=== PATIENT | male | born 1965 | race Caucasian/White ===

== ENCOUNTER 2017-05-18 07:15 | Outpatient (RCR) | payer BC, SELFPAY ==
[2017-05-18 11:17] LABS: AST(SGOT) 16 U/L (15-37); Alanine Aminotransfer ALT/SGPT 32 U/L (16-61); Albumin, Serum 3.8 g/dL (3.2-5.0); Alkaline Phosphatase 98 U/L (45-117); Bilirubin, Direct 0.07 mg/dL (0.00-0.30); Free T3 3.1 pg/mL (2.18-3.98); Globulin 3.4 g/dL (2.2-4.2); Protein, Total 7.2 g/dL (6.4-8.2); T4 Free Direct 1.02 ng/dL (0.76-1.46); Thyroid Stim Hormone (TSH) 2.21 uIU/mL (0.358-3.74)
== END 2017-05-18 08:00 | disposition home or self-care (01) ==
LOC: MTLAB 07:15
PROVIDERS: Family Provider Family Medicine; PCP Family Medicine
DX: E05.90 Thyrotoxicosis, unspecified without thyrotoxic crisis or storm (principal)
CPT/HCPCS: 36415; 80076; 84439; 84443; 84481

== ENCOUNTER → 2017-10-07 07:58 | Outpatient (CLI) | payer OTHER, SELFPAY ==
[2017-10-07 10:25] LABS: AST(SGOT) 26 U/L (15-37); Alanine Aminotransfer ALT/SGPT 46 U/L (16-61); Albumin, Serum 4.1 g/dL (3.2-5.0); Alkaline Phosphatase 101 U/L (45-117); Bilirubin, Direct 0.11 mg/dL (0.00-0.30); Free T3 3.2 pg/mL (2.18-3.98); Globulin 3.6 g/dL (2.2-4.2); Protein, Total 7.7 g/dL (6.4-8.2); T4 Free Direct 1.08 ng/dL (0.76-1.46); Thyroid Stim Hormone (TSH) 1.83 uIU/mL (0.358-3.74)
== END ==
PROVIDERS: Family Provider Family Medicine; PCP Family Medicine
DX: E05.90 Thyrotoxicosis, unspecified without thyrotoxic crisis or storm (principal)
CPT/HCPCS: 36415; 80076; 84439; 84443; 84481

== ENCOUNTER 2018-03-12 10:17 | Outpatient (RCR) | payer OTHER, SELFPAY ==
[2018-03-12 13:03] LABS: AST(SGOT) 28 U/L (15-37); Alanine Aminotransfer ALT/SGPT 46 U/L (16-61); Albumin, Serum 4.2 g/dL (3.2-5.0); Alkaline Phosphatase 107 U/L (45-117); Bilirubin, Direct 0.12 mg/dL (0.00-0.30); Globulin 3.4 g/dL (2.2-4.2); Protein, Total 7.6 g/dL (6.4-8.2); T4 Free Direct 1.07 ng/dL (0.76-1.46); Thyroid Stim Hormone (TSH) 2.91 uIU/mL (0.358-3.74)
== END 2018-03-12 11:00 | disposition home or self-care (01) ==
LOC: MTLAB 10:17
PROVIDERS: Family Provider Family Medicine; PCP Family Medicine
DX: E05.90 Thyrotoxicosis, unspecified without thyrotoxic crisis or storm (principal)
CPT/HCPCS: 36415; 80076; 84439; 84443; 84481

== ENCOUNTER 2018-05-25 07:50 | Outpatient (RCR) | payer OTHER, SELFPAY ==
[2018-05-25 10:29] LABS: AST(SGOT) 20 U/L (15-37); Alanine Aminotransfer ALT/SGPT 40 U/L (16-61); Albumin, Serum 4.1 g/dL (3.2-5.0); Alkaline Phosphatase 107 U/L (45-117); Bilirubin, Direct < 0.05 mg/dL (0.00-0.30); Free T3 3.1 pg/mL (2.18-3.98); Globulin 3.3 g/dL (2.2-4.2); Protein, Total 7.4 g/dL (6.4-8.2); T4 Free Direct 0.99 ng/dL (0.76-1.46); Thyroid Stim Hormone (TSH) 2.19 uIU/mL (0.358-3.74)
== END 2018-05-25 08:00 | disposition home or self-care (01) ==
LOC: MTLAB 07:50
PROVIDERS: Family Provider Family Medicine; PCP Family Medicine
DX: E05.90 Thyrotoxicosis, unspecified without thyrotoxic crisis or storm (principal)
CPT/HCPCS: 36415; 80076; 84439; 84443; 84481

== ENCOUNTER 2018-11-19 07:52 | Outpatient (RCR) | payer OTHER, SELFPAY ==
[2018-11-19 11:35] LABS: AST(SGOT) 25 U/L (15-37); Alanine Aminotransfer ALT/SGPT 44 U/L (16-61); Alkaline Phosphatase 103 U/L (45-117); Bilirubin, Direct 0.05 mg/dL (0.00-0.30); Free T3 3.3 pg/mL (2.18-3.98); Globulin 3.4 g/dL (2.2-4.2); Protein, Total 7.4 g/dL (6.4-8.2); T4 Free Direct 1.16 ng/dL (0.76-1.46); Thyroid Stim Hormone (TSH) 1.32 uIU/mL (0.358-3.74)
== END 2018-11-19 18:00 | disposition home or self-care (01) ==
LOC: MTLAB 07:52
PROVIDERS: Family Provider Family Medicine; PCP Family Medicine
DX: E05.90 Thyrotoxicosis, unspecified without thyrotoxic crisis or storm (principal)
CPT/HCPCS: 36415; 80076; 84439; 84443; 84481

== ENCOUNTER 2019-03-07 10:15 | Outpatient (RCR) | payer OTHER, SELFPAY ==
[2019-03-07 13:30] LABS: AST(SGOT) 22 U/L (15-37); Alanine Aminotransfer ALT/SGPT 44 U/L (16-61); Albumin, Serum 4.1 g/dL (3.2-5.0); Alkaline Phosphatase 103 U/L (45-117); Bilirubin, Direct 0.05 mg/dL (0.00-0.30); Free T3 3.3 pg/mL (2.18-3.98); Globulin 3.4 g/dL (2.2-4.2); Protein, Total 7.5 g/dL (6.4-8.2); T4 Free Direct 1.11 ng/dL (0.76-1.46); Thyroid Stim Hormone (TSH) 1.54 uIU/mL (0.358-3.74)
== END 2019-03-07 18:00 | disposition home or self-care (01) ==
LOC: MTLAB 10:15
PROVIDERS: Family Provider Family Medicine; PCP Family Medicine
DX: E05.90 Thyrotoxicosis, unspecified without thyrotoxic crisis or storm (principal)
CPT/HCPCS: 36415; 80076; 84439; 84443; 84481

== ENCOUNTER → 2019-10-24 11:15 | Outpatient (CLI) | payer OTHER, SELFPAY ==
[2019-10-24 15:29] LABS: AST(SGOT) 27 U/L (15-37); Alanine Aminotransfer ALT/SGPT 47 U/L (16-61); Albumin, Serum 3.7 g/dL (3.2-5.0); Alkaline Phosphatase 115 U/L (45-117); Free T3 3.2 pg/mL (2.18-3.98); Globulin 3.3 g/dL (2.2-4.2); T4 Free Direct 1.22 ng/dL (0.76-1.46); Thyroid Stim Hormone (TSH) 1.62 uIU/mL (0.358-3.74)
== END ==
PROVIDERS: PCP Family Medicine
DX: E05.90 Thyrotoxicosis, unspecified without thyrotoxic crisis or storm (principal)
CPT/HCPCS: 36415; 80076; 84439; 84443; 84481

== ENCOUNTER → 2020-09-18 07:19 | Outpatient (CLI) | payer OTHER, SELFPAY ==
[2020-09-18 10:43] LABS: ALB/GLOB Ratio 1.1 RATIO (0.9-2.4); AST(SGOT) 24 U/L (15-37); Alanine Aminotransfer ALT/SGPT 45 U/L (16-61); Albumin, Serum 3.8 g/dL (3.2-5.0); Alkaline Phosphatase 115 U/L (45-117); Anion Gap 7 (5-15); BUN 11 mg/dL (7-18); BUN/Creat Ratio 13.3 RATIO (10-20); Calcium,Total 8.5 mg/dL (8.5-10.1); Chloride 102 mmol/L (98-107); Creatinine, Serum 0.83 mg/dL (0.70-1.30); EST Glomerular Filtration Rate 103 mL/min (>60); Est Glom Filt Rate - Afr Amer 125 mL/min (>60); Free T3 3.2 pg/mL (2.18-3.98); Globulin 3.5 g/dL (2.2-4.2); Glucose 122 mg/dL (74-106); Potassium 4.1 mmol/L (3.5-5.1); Protein, Total 7.3 g/dL (6.4-8.2); Sodium Level 135 mmol/L (136-145); Thyroid Stim Hormone (TSH) 1.25 uIU/mL (0.358-3.74)
== END ==
LOC: MTLAB 07:24
PROVIDERS: PCP Family Medicine
DX: E05.90 Thyrotoxicosis, unspecified without thyrotoxic crisis or storm (principal)
CPT/HCPCS: 36415; 80053; 84439; 84443; 84481

== ENCOUNTER 2021-03-19 13:53 | Outpatient (RCR) | payer OTHER, SELFPAY ==
[2021-03-19 15:26] LABS: ALB/GLOB Ratio 1.1 RATIO (0.9-2.4); AST(SGOT) 17 U/L (15-37); Alanine Aminotransfer ALT/SGPT 39 U/L (16-61); Albumin, Serum 3.9 g/dL (3.2-5.0); Alkaline Phosphatase 109 U/L (45-117); Anion Gap 10 (5-15); BUN 11 mg/dL (7-18); BUN/Creat Ratio 12.2 RATIO (10-20); Calcium,Total 9.1 mg/dL (8.5-10.1); Chloride 100 mmol/L (98-107); EST Glomerular Filtration Rate 94 mL/min (>60); Est Glom Filt Rate - Afr Amer 113 mL/min (>60); Globulin 3.7 g/dL (2.2-4.2); Glucose 123 mg/dL (74-106); Potassium 3.8 mmol/L (3.5-5.1); Protein, Total 7.6 g/dL (6.4-8.2); Sodium Level 138 mmol/L (136-145); T4 Free Direct 1.01 ng/dL (0.76-1.46); Thyroid Stim Hormone (TSH) 0.95 uIU/mL (0.358-3.74)
== END 2021-04-15 18:00 | disposition home or self-care (01) ==
LOC: MTLAB 13:53
PROVIDERS: PCP Family Medicine
DX: E05.90 Thyrotoxicosis, unspecified without thyrotoxic crisis or storm (principal)
CPT/HCPCS: 36415; 80053; 84439; 84443; 84481

== ENCOUNTER 2021-05-31 15:21 | Outpatient (CLI) | payer OTHER, SELFPAY ==
[2021-05-31 17:52] LABS: Absolute Lymphocyte Count 3.33 X10^3/uL (0.83-4.51); Absolute Neutrophil Count 6.7 X10^3/uL (2.0-7.7); Basophil# 0.04 X10^3/uL; Basophil% 0.4 % (0-1); Eosinophils% 2.7 % (0-5); Hematocrit 47.7 % (40-54); Hemoglobin 16.1 g/dL (13.0-16.5); Lymphocyte # 3.33 X10^3/ul (0.83-4.51); Lymphocyte % 29.7 % (19-41); Mean Corp Hgb Conc 33.8 g/dL (32-36); Mean Corpuscular Hgb 29.3 pg (27.0-32.0); Mean Corpuscular Volume 86.9 fL (80-94); Mean Platelet Vol. 11.7 fl (6.2-12.0); Monocyte# 0.83 X10^3/uL; Monocyte% 7.4 % (0-10); NRBC Flagged by Analyzer 0 % (0-5); Neutrophil # 6.65 X10^3/uL (2.7-7.7); Neutrophil % 59.2 % (47-70); Platelet Count 263 K/mm3 (150-450); RBC Distribution Width CV 13.4 % (11.6-14.6); Red Blood Count 5.49 M/mm3 (4.6-6.2); White Blood Count 11.2 K/mm3 (4.4-11.0)
[2021-05-31 18:17] LABS: Cholesterol 237 mg/dL (200); High Density Lipoprotein 40 mg/dL
[2021-05-31 18:26] LABS: Microalbumin,Random Urine 8.3 mg/L (NO RANGE EST.); Microalbumin:Creatinine Ratio 55.6 mg/g CRE (<30 mg/g CRE)
[2021-05-31 18:31] LABS: Hemoglobin A1c 5.7 % (3.8-5.6)
== END 2021-05-31 23:59 | disposition home or self-care (01) ==
LOC: MFPLAB 15:24
PROVIDERS: PCP Family Medicine; Referring Provider Family Medicine; Visit Provider Family Medicine
DX: I10 Essential (primary) hypertension (principal); J44.9 Chronic obstructive pulmonary disease, unspecified; E06.9 Thyroiditis, unspecified; R73.09 Other abnormal glucose
CPT/HCPCS: 36415; 82043; 82465; 82570; 83036; 83718; 85025

== ENCOUNTER 2022-02-25 07:30 | Outpatient (RCR) | payer OTHER, SELFPAY ==
[2022-02-25 10:50] LABS: AST(SGOT) 21 U/L (15-37); Alanine Aminotransfer ALT/SGPT 43 U/L (16-61); Albumin, Serum 4.2 g/dL (3.2-5.0); Alkaline Phosphatase 103 U/L (45-117); Bilirubin, Direct 0.11 mg/dL (0.00-0.30); Free T3 3.3 pg/mL (2.18-3.98); Protein, Total 7.2 g/dL (6.4-8.2); T4 Free Direct 1.06 ng/dL (0.76-1.46); Thyroid Stim Hormone (TSH) 1.46 uIU/mL (0.358-3.74)
== END 2022-02-25 18:00 | disposition home or self-care (01) ==
LOC: MTLAB 07:30
PROVIDERS: PCP Family Medicine
DX: E05.90 Thyrotoxicosis, unspecified without thyrotoxic crisis or storm (principal)
CPT/HCPCS: 36415; 80076; 84439; 84443; 84481

== ENCOUNTER → 2022-12-10 | Outpatient (CLI) | payer OTHER, SELFPAY ==
[2022-12-10 15:10] LABS: Hematocrit 54.3 % (40-54); Mean Corp Hgb Conc 31.3 g/dL (32-36); Mean Corpuscular Hgb 29.2 pg (27.0-32.0); Mean Corpuscular Volume 93.1 fL (80-94); Mean Platelet Vol. 12.3 fl (6.2-12.0); Platelet Count 212 K/mm3 (150-450); RBC Distribution Width CV 13.9 % (11.6-14.6); RBC Distribution Width SD 47.6 fl (35.1-43.9); Red Blood Count 5.83 M/mm3 (4.6-6.2); White Blood Count 9.7 K/mm3 (4.4-11.0)
[2022-12-10 15:49] LABS: AST(SGOT) 22 U/L (15-37); Alanine Aminotransfer ALT/SGPT 31 U/L (16-61); Albumin, Serum 3.9 g/dL (3.2-5.0); Alkaline Phosphatase 108 U/L (45-117); Anion Gap 4 (5-15); BUN 12 mg/dL (7-18); BUN/Creat Ratio 15.3 RATIO (10-20); Chloride 105 mmol/L (98-107); Cholesterol 242 mg/dL (200); Creatinine, Serum 0.78 mg/dL (0.70-1.30); EST Glomerular Filtration Rate 109 mL/min (>60); Est Glom Filt Rate - Afr Amer 132 mL/min (>60); Globulin 3.8 g/dL (2.2-4.2); Glucose 96 mg/dL (74-106); High Density Lipoprotein 42 mg/dL; PSA,Total - Annual Screen 0.37 ng/mL (0.00-4.00); Potassium 4.4 mmol/L (3.5-5.1); Protein, Total 7.7 g/dL (6.4-8.2); Sodium Level 134 mmol/L (136-145); Triglycerides 101 mg/dL; Very Low Density Lipoprotein 20 mg/dL (5-40)
== END | disposition home or self-care (01) ==
LOC: MFPLAB 12:22
PROVIDERS: PCP Family Medicine; Visit Provider Nurse Practitioner Family
DX: E78.5 Hyperlipidemia, unspecified (principal); I10 Essential (primary) hypertension; Z12.5 Encounter for screening for malignant neoplasm of prostate
CPT/HCPCS: 36415; 80053; 80061; 84153; 85027; G0103

== ENCOUNTER → 2023-03-27 | Outpatient (CLI) | payer OTHER, SELFPAY ==
--- OUTSIDE RECORDS SUMMARY | 2023-03-27 11:27 | XMS RPT_ITS | CCD ---
Author Name Unknown Address [address] [place] [address] Organization [facility] Care Team Providers Care Police Dispatcher Name Role Phone SHAYNE PRUETT Attending Unavailable SHAYNE PRUETT Referring Unavailable ERNA SHEN Primary Care Unavailable SHAYNE PRUETT Attending Unavailable SHAYNE PRUETT Referring Unavailable ERNA SHEN Primary Care Unavailable SHAYNE PRUETT Attending Unavailable SHAYNE PRUETT Referring Unavailable ERNA SHEN Primary Care Unavailable Erna Shen MD Primary Care Provider Tye BURNETT MD, Jolynn Unavailable Shayne Pruett MD Unavailable Boni Neves MD Unavailable Erna Shen MD Primary Care Provider Tye BURNETT MD, Dani Unavailable Shayne Pruett MD Unavailable Boni Neves MD Unavailable ERNA SHEN Primary Care Unavailable SHAYNE PRUETT Referring Unavailable SHAYNE PRUETT Attending Unavailable BONI NEVES Referring Unavailable BONI NEVES Attending Unavailable Erna Shen MD Primary Care Provider [phone] Allergies Allergy Classification Reported Allergen(s) Allergy Type Date of Onset Reaction(s) Facility (8 sources) amLODIPine; Translations: [AMLODIPINE] Drug Allergy 02-05-2015 Anaphylaxis [facility] Repository (8 sources) Doxycycline; Translations: [DOXYCYCLINE HYCLATE] Drug Allergy 08-10-2015 Unknown [facility] Repository Medications Completed/Discontinued Medications Medication Drug Class(es) Dates Sig (Normalized) Sig (Original) aspirin 81 mg delayed release oral tablet (5 sources) Platelet Aggregation Inhibitor, Nonsteroidal Anti-inflammatory Drug take 1 tablet by mouth once daily aspirin, enteric coated (ASPIRIN, ENTERIC COATED) 81 mg EC tablet Take 81 mg by mouth once daily. 0 Active Problems Active Problems Problem Classification Problem Date Documented Da te Episodic/Chronic Essential hypertension (11 sources) Essential hypertension; Translations: [Essential (primary) hypertension] Onset: 04-03-2016 Chronic Other nutritional; endocrine; and metabolic disorders (5 sources) Overweight; Translations: [Overweight] 11-24-2016 Episodic Thyroid disorders (19 sources) Hyperthyroidism; Translations: [Thyrotoxicosis, unspecified without thyrotoxic crisis or storm] Onset: 10-01-2015 Chronic Past or Other Problems Problem Classification Problem Date Documented Da te Episodic/Chronic Acute bronchitis (5 sources) Acute bronchitis; Translations: [Acute bronchitis, unspecified] Onset: 12-19-2015 12-19-2015 Episodic Diabetes mellitus without complication (7 sources) Hyperglycemia; Translations: [Impaired fasting glucose] Onset: 10-01-2020 10-01-2020 Episodic Other eye disorders (5 sources) Disorder of orbit proper; Translations: [Other disorders of orbit] Onset: 10-01-2016 10-01-2016 Episodic Results Test Name Value Interpretation Reference Range Facil ity Vital Signs Date Time Vital Sign Value Performing Clinician Faci [facility] 03-07-2022 10:26-0500 Body height 177.8 cm Shayne Pruett MD Work Phone: [facility] 03-07-2022 10:26-0500 Body weight 94.53 kg Shayne Pruett MD Work Phone: [facility] 03-07-2022 10:26-0500 Diastolic blood pressure 85 mm[Hg] Shayne Pruett MD Work Phone: [facility] 03-07-2022 10:26-0500 Heart rate 83 /min Shayne Pruett MD Work Phone: [facility] 03-07-2022 10:26-0500 SaO2% (BldA) [Mass fraction] 98 % Shayne Pruett MD Work Phone: [facility] 03-07-2022 10:26-0500 Systolic blood pressure 157 mm[Hg] Shayne Pruett MD Work Phone: [facility] Encounters Encounter Date Encounter Type Care Provider Facility Start: 08-18-2022 Erin olea MD Work Phone: [facility] Plan of Treatment Date Care Activity Detail Author Start: 11-14-2022 [facility] Start: 2022 PROSTATE CANCER SCREENING DISCUSSION PROSTATE CANCER SCREENING DISCUSSION [facility] Start: 03-25-2022 BP CONTROLLED (<130/80) BP CONTROLLED (<130/80) [facility] Start: 03-16-2022 DEPRESSION ASSESSMENT DEPRESSION ASSESSMENT [facility] Start: 11-14-2021 Influenza vaccination INFLUENZA (#1) [facility] Start: 06-21-2021 COVID-19 VACCINE (3 - Booster for Elio series) COVID-19 VACCINE (3 - Booster for Elio series) [facility] Start: 04-17-2021 COVID-19 VACCINE (3 - Booster for Elio series) COVID-19 VACCINE (3 - Booster for Elio series) [facility] Start: 12-18-2018 DIABETES SCREEN DIABETES SCREEN [facility] Start: 2017 Influenza vaccination LUNG CANCER SCREENING [facility] Start: 2017 SHINGRIX VACCINE (1 of 2) SHINGRIX VACCINE (1 of 2) [facility] Start: 2012 COLOGUARD (FIT-DNA) COLOGUARD (FIT-DNA) [facility] Start: 2012 Colonoscopy COLONOSCOPY [facility] Start: 2012 COLORECTAL CANCER SCREENING COLORECTAL CANCER SCREENING [facility] Start: [address] COLONOGRAPHY [facility] Start: 2012 FECAL OCCULT BLOOD FECAL OCCULT BLOOD [facility] Start: 2012 SIGMOIDOSCOPY SIGMOIDOSCOPY [facility] Start: 2002 LIPID SCREEN LIPID SCREEN [facility] Start: 1986 Urine microalbumin profile DTAP,TDAP,TD (1 - Tdap) [facility] Start: 1985 ANNUAL PCP TEAM CHRONIC DISEASE VISIT ANNUAL PCP TEAM CHRONIC DISEASE VISIT [facility] Start: 1985 BP CONTROLLED (<130/80) BP CONTROLLED (<130/80) [facility] Start: 1985 HEPATITIS C SCREENING HEPATITIS C SCREENING [facility] Start: 1985 HIV SCREENING HIV SCREENING [facility] Start: 1979 Adult depression screening assessment DEPRESSION SCREENING [facility] Start: 1973 PNEUMOCOCCAL (1 - PCV) PNEUMOCOCCAL (1 - PCV) [facility] Start: 1967 HEPATITIS B (1 of 3 - 3-dose series) HEPATITIS B (1 of 3 - 3-dose series) [facility] End: 03-07-2023 Hepatic function 2000 panel - Serum or Plasma HEPATIC FUNCTION PNL Lab Routine Hyperthyroidism Every 6 months for 2 Occurrences starting 03/07/2022 until 03/07/2023 [facility] Work Phone: Payers Date Payer Category Payer Private Health [facility] [id number] 2022-Present [phone] [address] [address] [place] [address] HMO [id number] 2022 Unknown [id number] 2020 Private Health Insurance [employer] Shakira REILLYNA [employer] CHOICE POS [id number] 2020-Present [phone] [address] [place] [address] POS [id number] 1967 Unknown [id number] 1967 Unknown [id number] 1967 Unknown [id number] Unknown [id number] Unknown [id number] Social History Date Type Detail Facility Start: 02-05-2015 End: 03-07-2022 Tobacco smoking status NHIS Smokes tobacco daily [facility] History of tobacco use Cigarette Smoker C [facility] Start: 02-05-2015 End: 03-07-2022 Cigarettes smoked current (pack per day) - Reported 1 [facility] Start: 02-05-2015 End: 03-07-2022 Tobacco use and exposure Smokeless tobacco non-user [facility] Start: 03-25-2021 End: 03-07-2022 Alcohol intake Current drinker of alcohol (finding) [facility] Start: 02-05-2015 History SDOH Alcohol Comment rare [facility] Start: 1965 Sex Assigned At Not on file C [facility] Clinical Notes 10-16-2021 to 08-18-2022 Telephone Encounter - Cecelia Kim MA - 08/18/2022 11:14 AM EDTTelephone Encounter - Shayne Pruett MD - 08/18/2022 8:50 AM EDTKeminnie Pruett MD - 03/07/2022 10:31 AM EST Note Date & Type Note Facility 08-18-2022 Miscellaneous Notes Duplicate, please remove and close Cecelia Kim CMA August 18, 2022 11:15 AM documented in this encounter [facility] 08-18-2022 Miscellaneous Notes The following approved medication requests have been transmitted electronically. Requested Prescriptions Pending Prescriptions Disp Refills metoprolol succinate ER (TOPROL XL) 50 mg 24 hr tablet [Pharmacy Med Name: Metoprolol Succinate ER 50 MG Oral Tablet Extended Release 24 Hour] 90 tablet 3 Sig: TAKE 1 TABLET BY MOUTH ONCE DAILY Shayne Pruett MD Pharmacy interfaced requesting the following refill. Requested Prescriptions Pending Prescriptions Disp Refills metoprolol succinate ER (TOPROL XL) 50 mg 24 hr tablet [Pharmacy Med Name: Metoprolol Succinate ER 50 MG Oral Tablet Extended Release 24 Hour] 90 tablet 3 Sig: TAKE 1 TABLET BY MOUTH ONCE DAILY Patient last appointment: 03/07/2022 Next Appointment: 03/06/2023 Patient Phone numbers: [phone] (home) Request is for script(s) to be escript to pharmacy. Cecelia Kim CMA documented in this encounter [facility] 03-25-2022 Miscellaneous Notes The following approved medication requests have been transmitted electronically. Requested Prescriptions Pending Prescriptions Disp Refills methIMAzole (TAPAZOLE) 5 mg tablet 90 tablet 3 Sig: Take 1 tablet by mouth once daily. metoprolol succinate ER (TOPROL XL) 50 mg 24 hr tablet 30 tablet 5 Sig: Take 1 tablet by mouth once daily. ramipril (ALTACE) 10 mg capsule 90 capsule 3 Sig: Take 1 capsule by mouth once daily. Shayne Pruett MD Lili: 03/07/2022 Nov: 03/06/2023 Pharmacy electronically requesting refills as follows: Requested Prescriptions Pending Prescriptions Disp Refills methIMAzole (TAPAZOLE) 5 mg tablet 90 tablet 3 Sig: Take 1 tablet by mouth once daily. metoprolol succinate ER (TOPROL XL) 50 mg 24 hr tablet 30 tablet 5 Sig: Take 1 tablet by mouth once daily. ramipril (ALTACE) 10 mg capsule 90 capsule 3 Sig: Take 1 capsule by mouth once daily. Please review and advise. Cecelia Kim MA documented in this encounter [facility] 03-07-2022 Note HNO ID: [id number] Author: Shayne Pruett MD Service: ? Author Type: Physician Type: Progress Notes Filed: 04/13/2022 10:49 PM Note Text: Subjective Mark Snider is a 56 year old male, presenting for follow-up endocrinology visit for thyroid disease. His most recent visit was 04/06. Graves hyperthyroidism: History of severe Graves (hospitalized with 'storm' 05/2014), started with methimazole at that time. Had/has significant eye disease, was off work for a period of time because of it. Has elected for semi long-term medication treatment due to eye disease rather than BUI. - Thyroid u/s done 3/15 at outside institution, 05/31 here without nodules. - Currently on 10 mg QD methimazole 1 day a week and 1/2 tablet (5 mg) 6 days a week. - TSH 1.7 02/28, 1.6 06/30, 2.4 09/29, 0.97 11/30, 2.2 05/31, 1.8 09/30, 2.9 04/03, 2.1 06/01, 1.3 12/02, 1.5 03/03, 1.25 10/03, 0.9 04/06, 1.46 03/06 Review of Systems Constitutional: Negative for chills, diaphoresis, fever, malaise/fatigue and weight loss. HENT: Negative for congestion, ear discharge, ear pain, hearing loss, nosebleeds, sinus pain, sore throat and tinnitus. Eyes: Positive for blurred vision, double vision, pain, discharge and redness. Negative for photophobia. Respiratory: Negative for cough, hemoptysis, sputum production, shortness of breath, wheezing and stridor. Cardiovascular: Negative for chest pain, palpitations, orthopnea, claudication, leg swelling and PND. Gastrointestinal: Negative for abdominal pain, blood in stool, constipation, diarrhea, heartburn, melena, nausea and vomiting. Genitourinary: Negative for dysuria, flank pain, frequency, hematuria and urgency. Musculoskeletal: Negative for back pain, falls, joint pain, myalgias and neck pain. Skin: Negative for itching and rash. Neurological: Negative for dizziness, tingling, tremors, sensory change, speech change, focal weakness, seizures, loss of consciousness, weakness and headaches. Endo/Heme/Allergies: Negative for environmental allergies and polydipsia. Does not bruise/bleed easily. Psychiatric/Behavioral: Negative for depression, hallucinations, memory loss, substance abuse and suicidal ideas. The patient is not nervous/anxious and does not have insomnia. PAST MEDICAL HISTORY Diagnosis Date BMI 29.0-29.9,adult Hyperparathyroidism (HCC) Hypertension Hyperthyroidism Overweight Thyroid eye disease Tobacco use dis-del-p/p PAST SURGICAL HISTORY Procedure Laterality Date EYE SURGERY HX Bilateral 10/30/2016 Fatty decompression upper eyelid approach MYRINGOTOMY W TUBE,BILATERAL(2) TONSILLECTOMY HX FAMILY HISTORY Problem Relation Age of Onset No Ocular Disease Other Breast Cancer Mother other (liver cancer) Mother other (bone marrow cancer) Mother Arthritis Father Hypertension Father other (respiratory condition) Father other (sever allergy) Father Social History Tobacco Use Smoking status: Every Day Packs/day: 1.00 Years: 28.00 Pack years: 28.00 Types: Cigarettes Smokeless tobacco: Never Substance Use Topics Alcohol use: Yes Comment: rare Drug use: No Current Meds metoprolol succinate ER (TOPROL XL) 50 mg 24 hr tablet TAKE 1 TABLET BY MOUTH EVERY DAY methIMAzole (TAPAZOLE) 10 mg tablet TAKE 1 TABLET BY MOUTH EVERY DAY ramipril (ALTACE) 10 mg capsule TAKE 1 CAPSULE BY MOUTH EVERY DAY TRELEGY ELLIPTA 100-62.5-25 mcg dsdv once daily. aspirin, enteric coated (ASPIRIN, ENTERIC COATED) 81 mg EC tablet Take 81 mg by mouth once daily. Objective BP 157/85 (BP Site: Left Arm, BP Position: Sitting, BP Cuff Size: Large Adult) Pulse 83 Ht 177.8 cm (5' 10 ) Wt 94.5 kg (208 lb 6.4 oz) SpO2 98% BMI 29.90 kg/m? Physical Exam Constitutional: General: He is not in acute distress. Appearance: Normal appearance. HENT: Head: Normocephalic and atraumatic. Eyes: General: No scleral icterus. Conjunctiva/sclera: Conjunctivae normal. Pupils: Pupils are equal, round, and reactive to light. Neck: Thyroid: No thyromegaly. Trachea: No tracheal deviation. Cardiovascular: Rate and Rhythm: Normal rate and regular rhythm. Heart sounds: Normal heart sounds. Pulmonary: Effort: Pulmonary effort is normal. No respiratory distress. Breath sounds: Normal breath sounds. Musculoskeletal: General: No tenderness or deformity. Cervical back: Neck supple. Lymphadenopathy: Cervical: No cervical adenopathy. Skin: General: Skin is warm and dry. Findings: No rash. Neurological: General: No focal deficit present. Mental Status: He is alert and oriented to person, place, and time. Gait: Gait is intact. Psychiatric: Mood and Affect: Mood and affect normal. Behavior: Behavior normal. Cognition and Memory: Memory normal. Judgment: Judgment normal. Assesment / Plans: (Some elements may be copied from previous notes, which have been updated where appropriate, and all reflect current medical deci (more content not included)... [facility] 03-07-2022 History of Presen t illness Narrative Images from the original note were not included. Subjective Mark Snider is a 56 year old male, presenting for follow-up endocrinology visit for thyroid disease. His most recent visit was 04/06. Graves hyperthyroidism: History of severe Graves (hospitalized with 'storm' 05/2014), started with methimazole at that time. Had/has significant eye disease, was off work for a period of time because of it. Has elected for semi long-term medication treatment due to eye disease rather than UBI. - Thyroid u/s done 05/28 at outside institution, 05/31 here without nodules. - Currently on 10 mg QD methimazole 1 day a week and 1/2 tablet (5 mg) 6 days a week. - TSH 1.7 02/28, 1.6 06/30, 2.4 09/29, 0.97 11/30, 2.2 05/31, 1.8 09/30, 2.9 04/03, 2.1 06/01, 1.3 12/02, 1.5 03/03, 1.25 10/03, 0.9 04/06, 1.46 03/06 Review of Systems Constitutional: Negative for chills, diaphoresis, fever, malaise/fatigue and weight loss. HENT: Negative for congestion, ear discharge, ear pain, hearing loss, nosebleeds, sinus pain, sore throat and tinnitus. Eyes: Positive for blurred vision, double vision, pain, discharge and redness. Negative for photophobia. Respiratory: Negative for cough, hemoptysis, sputum production, shortness of breath, wheezing and stridor. Cardiovascular: Negative for chest pain, palpitations, orthopnea, claudication, leg swelling and PND. Gastrointestinal: Negative for abdominal pain, blood in stool, constipation, diarrhea, heartburn, melena, nausea and vomiting. Genitourinary: Negative for dysuria, flank pain, frequency, hematuria and urgency. Musculoskeletal: Negative for back pain, falls, joint pain, myalgias and neck pain. Skin: Negative for itching and rash. Neurological: Negative for dizziness, tingling, tremors, sensory change, speech change, focal weakness, seizures, loss of consciousness, weakness and headaches. Endo/Heme/Allergies: Negative for environmental allergies and polydipsia. Does not bruise/bleed easily. Psychiatric/Behavioral: Negative for depression, hallucinations, memory loss, substance abuse and suicidal ideas. The patient is not nervous/anxious and does not have insomnia. PAST MEDICAL HISTORY Diagnosis Date BMI 29.0-29.9,adult Hyperparathyroidism (HCC) Hypertension Hyperthyroidism Overweight Thyroid eye disease Tobacco use dis-del-p/p PAST SURGICAL HISTORY Procedure Laterality Date EYE SURGERY HX Bilateral 10/30/2016 Fatty decompression upper eyelid approach MYRINGOTOMY W TUBE,BILATERAL(2) TONSILLECTOMY HX FAMILY HISTORY Problem Relation Age of Onset No Ocular Disease Other Breast Cancer Mother other (liver cancer) Mother other (bone marrow cancer) Mother Arthritis Father Hypertension Father other (respiratory condition) Father other (sever allergy) Father Social History Tobacco Use Smoking status: Every Day Packs/day: 1.00 Years: 28.00 Pack years: 28.00 Types: Cigarettes Smokeless tobacco: Never Substance Use Topics Alcohol use: Yes Comment: rare Drug use: No Current Meds metoprolol succinate ER (TOPROL XL) 50 mg 24 hr tablet TAKE 1 TABLET BY MOUTH EVERY DAY methIMAzole (TAPAZOLE) 10 mg tablet TAKE 1 TABLET BY MOUTH EVERY DAY ramipril (ALTACE) 10 mg capsule TAKE 1 CAPSULE BY MOUTH EVERY DAY TRELEGY ELLIPTA 100-62.5-25 mcg dsdv once daily. aspirin, enteric coated (ASPIRIN, ENTERIC COATED) 81 mg EC tablet Take 81 mg by mouth once daily. Objective BP 157/85 (BP Site: Left Arm, BP Position: Sitting, BP Cuff Size: Large Adult) Pulse 83 Ht 177.8 cm (5' 10 ) Wt 94.5 kg (208 lb 6.4 oz) SpO2 98% BMI 29.90 kg/m Physical Exam Constitutional: General: He is not in acute distress. Appearance: Normal appearance. HENT: Head: Normocephalic and atraumatic. Eyes: General: No scleral icterus. Conjunctiva/sclera: Conjunctivae normal. Pupils: Pupils are equal, round, and reactive to light. Neck: Thyroid: No thyromegaly. Trachea: No tracheal deviation. Cardiovascular: Rate and Rhythm: Normal rate and regular rhythm. Heart sounds: Normal heart sounds. Pulmonary: Effort: Pulmonary effort is normal. No respiratory distress. Breath sounds: Normal breath sounds. Musculoskeletal: General: No tenderness or deformity. Cervical back: Neck supple. Lymphadenopathy: Cervical: No cervical adenopathy. Skin: General: Skin is warm and dry. Findings: No rash. Neurological: General: No focal deficit present. Mental Status: He is alert and oriented to person, place, and time. Gait: Gait is intact. Psychiatric: Mood and Affect: Mood and affect normal. Behavior: Behavior normal. Cognition and Memory: Memory normal. Judgment: Judgment normal. Assesment / Plans: (Some elements may be copied from previous notes, which have been updated where appropriate, and all reflect current medical decision making from today.) ASSESSMENT/PLAN: 1. Hyperthyroidism - ICD9: 242.90, ICD10: E05.90 (primary diagnosis) - well controlled - TSH BLD - T4 FREE/FREE THYROX - T3 FREE BLD - HEPATIC FUNCTION PNL - METHIMAZOLE 5 MG TABLET 2. 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 Fasting hyperglycemia - ICD9: 790.21, ICD10: R73.01 - watch glucose and carb intake 4. Primary hypertension - ICD9: 401.9, ICD10: I10 - fair control - Continue current medication(s) - Recommended regular aerobic exercise. documented in this encounter [facility] 10-16-2021 Miscellaneous Notes Pt has been rescheduled for 03-07-22 10:30 am. Patient also states that he is going to need new lab orders to be mailed to him. Thank you Sanam Meyers October 16, 2021 9:38 AM Please touch base with Mark about getting an appointment rescheduled. I think his September appt had to be cancelled while I was covering the hospital The following approved medication requests have been transmitted electronically. Pending Prescriptions Disp Refills METOPROLOL SUCCINATE ER 50 MG TABLET,EXTENDED RELEASE 24 HR 30 tablet 5 Sig: TAKE 1 TABLET BY MOUTH EVERY DAY SVITLANA: Yes METHIMAZOLE 10 MG TABLET 30 tablet 5 Sig: TAKE 1 TABLET BY MOUTH EVERY DAY SVITLANA: Yes Shayne Pruett MD [facility] 03/25/2021 NOV None at this time Pharmacy electronically requesting refills as follows: Pending Prescriptions Disp Refills METOPROLOL SUCCINATE ER 50 MG TABLET,EXTENDED RELEASE 24 HR 30 tablet 0 Sig: TAKE 1 TABLET BY MOUTH EVERY DAY SVITLANA: Yes METHIMAZOLE 10 MG TABLET 30 tablet 0 Sig: TAKE 1 TABLET BY MOUTH EVERY DAY SVITLANA: Yes Please review and advise. 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 or storm [facility] Diagnosis Hyperthyroidism- Primary Thyrotoxicosis without mention of goiter or other cause, without mention of thyrotoxic crisis or storm 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 or storm Fasting hyperglycemia Impaired fasting glucose Primary hypertension Unspecified essential hypertension [facility]* Diagnosis Essential hypertension Unspecified essential hypertension documented in this encounter [facility] note* Diagnosis Essential hypertension Unspecified essential hypertension documented in this encounter [facility] Summary Purpose Family History No Family History Records FoundNo Family History Records FoundNo Family History Records Found Advance Directives Documents on File Type Date Recorded Patient Customer Support Coordinator Expl anation Advance Directive(s) 10/30/2016 6:39 AM Additional Source Comments (unrecognized sect ion and content) No Status Records FoundNo Status Records FoundNo Status Records Found INFORMATION SOURCE (unrecogn ized section and content) DATE CREATED AUTHOR AUTHOR'S ORGANIZ ATION 04/13/2022 [facility] DATE CREATED AUTHOR AUTHOR'S ORGANIZ ATION 08/24/2022 [facility] Source Comments (unrecognize d section and content) In the event this informatio n is protected by the Federal Confidentiality of Alcohol and Drug Abuse Patient Records regulations: The Federal rules restrict any use of the information to criminally investigate or prosecute any alcohol or drug abuse patient.[facility] event this information is protected by the Federal Confidentiality of Alcohol and Drug Abuse Patient Records regulations: The Federal rules restrict any use of the information to criminally investigate or prosecute any alcohol or drug abuse patient.[facility] the event this information is protected by the Federal Confidentiality of Alcohol and Drug Abuse Patient Records regulations: The Federal rules restrict any use of the information to criminally investigate or prosecute any alcohol or drug abuse patient.[facility] the event this information is protected by the Federal Confidentiality of Alcohol and Drug Abuse Patient Records regulations: The Federal rules restrict any use of the information to criminally investigate or prosecute any alcohol or drug abuse patient.[facility] [facility] [place] the event this information is protected by the Federal Confidentiality of Alcohol and Drug Abuse Patient Records regulations: The Federal rules restrict any use of the information to criminally investigate or prosecute any alcohol or drug abuse patient.[facility] Reason for Visit (unrecogniz ed section and content) Reason Comments Refill Request Mathimazole, metopro lol, ramipril Reason Comments Refill Request Metoprolol Reason Comments Refill Request metoprolol duplicate Care Teams (unrecognized sec tion and content) Police Dispatcher Relationship Specialty Start Date End Date Erna Shen MD PCP - General Family Medicine 12/11/14 Jolynn Gamble MD, [address] [facility] [place], [place] [id number] Physician Radiation Oncology 09/24/15 Shayne Pruett MD [address] [facility] [address] [place] [address] Endocrinology 10/18/17 Boni Neves MD [address] [facility] [address] [place] [address] Ophthalmology 10/18/17 Police Dispatcher Relationship Specialty Start Date End Date Erna Shen MD PCP - General Family Medicine 12/11/14 Jolynn Gamble MD, [address] [place], [place] [id number] Physician Radiation Oncology 09/24/15 Shayne Pruett MD [address] [facility] [address] [place] [address] Endocrinology 10/18/17 Boni Neves MD [address] [address] Ophthalmology 10/18/17 Police Dispatcher Relationship Specialty Start Date End Date Erna Shen MD PCP - General Family Medicine 12/11/14 Jolynn Gamble MD, [address] [place] [address] Physician Radiation Oncology 09/24/15 Shayne Pruett MD [address] [address] Endocrinology 10/18/17 Boni Neves MD [address] [address] Ophthalmology 10/18/17 FOR RECORDS PERTAINING TO PATIENTS WHO ARE OR HAVE BEEN ENROLLED IN A CHEMICAL DEPENDENCY/SUBSTANCEABUSE PROGRAM, SOME INFORMATION MAY BE OMITTED. This clinical summary was aggregated from multiple sources. Caution should be exercised in using it in the provision of clinical care. This summary normalizes information from multiple sources, and as a consequence, information in this document may materially change the coding, format and clinical context of patient data. In addition, data may be omitted in some cases. CLINICAL DECISIONS SHOULD BE BASED ON THE PRIMARY CLINICAL RECORDS. [facility] [employer] [facility]. provides no warranty or guarantee of the accuracy or completeness of information in this document.
[2023-03-27 12:14] LABS: Absolute Lymphocyte Count 2.66 X10^3/uL (0.83-4.51); Absolute Neutrophil Count 4.5 X10^3/uL (2.0-7.7); Basophil# 0.08 X10^3/uL; Eosinophil# 0.28 X10^3/uL; Eosinophils% 3.3 % (0-5); Hematocrit 53.7 % (40-54); Hemoglobin 17.1 g/dL (13.0-16.5); Lymphocyte # 2.66 X10^3/ul (0.83-4.51); Lymphocyte % 31.6 % (19-41); Mean Corp Hgb Conc 31.8 g/dL (32-36); Mean Corpuscular Hgb 28.9 pg (27.0-32.0); Mean Corpuscular Volume 90.9 fL (80-94); Mean Platelet Vol. 12.5 fl (6.2-12.0); Monocyte# 0.86 X10^3/uL; Monocyte% 10.2 % (0-10); NRBC Flagged by Analyzer 0 % (0-5); Neutrophil # 4.45 X10^3/uL (2.7-7.7); Neutrophil % 52.8 % (47-70); Platelet Count 228 K/mm3 (150-450); RBC Distribution Width CV 13.5 % (11.6-14.6); RBC Distribution Width SD 45.9 fl (35.1-43.9); Red Blood Count 5.91 M/mm3 (4.6-6.2); White Blood Count 8.4 K/mm3 (4.4-11.0)
[2023-03-27 13:22] LABS: AST(SGOT) 19 U/L (15-37); Alanine Aminotransfer ALT/SGPT 35 U/L (16-61); Albumin, Serum 3.8 g/dL (3.2-5.0); Alkaline Phosphatase 109 U/L (45-117); Anion Gap 9 (5-15); BUN 15 mg/dL (7-18); BUN/Creat Ratio 18.3 RATIO (10-20); Calcium,Total 9.5 mg/dL (8.5-10.1); Chloride 107 mmol/L (98-107); Creatinine, Serum 0.82 mg/dL (0.70-1.30); EST Glomerular Filtration Rate 103 mL/min (>60); Est Glom Filt Rate - Afr Amer 125 mL/min (>60); Free T3 3.2 pg/mL (2.18-3.98); Globulin 3.7 g/dL (2.2-4.2); Glucose 66 mg/dL (74-106); Potassium 4.1 mmol/L (3.5-5.1); Protein, Total 7.5 g/dL (6.4-8.2); Sodium Level 138 mmol/L (136-145); T4 Free Direct 0.94 ng/dL (0.76-1.46); Thyroid Stim Hormone (TSH) 0.99 uIU/mL (0.358-3.74)
== END | disposition home or self-care (01) ==
LOC: MFPLAB 10:56
PROVIDERS: PCP Family Medicine; Visit Provider Family Medicine
DX: I10 Essential (primary) hypertension (principal); J44.9 Chronic obstructive pulmonary disease, unspecified; E05.90 Thyrotoxicosis, unspecified without thyrotoxic crisis or storm
CPT/HCPCS: 36415; 80053; 84439; 84443; 84481; 85025

== ENCOUNTER → 2023-04-10 | Outpatient (CLI) | payer OTHER, SELFPAY ==
--- NOTE | 2023-04-10 14:55 | CT_ITS ---
HISTORY: TOBACCO USE DISORDER. TECHNIQUE: Helically acquired images were obtained of the chest without contrast. A radiation dose optimization technique was used for this scan. 554 images. COMPARISON: XR 05/31/2014. FINDINGS: LARGE AIRWAYS: Patent. LUNGS: Mild-moderate centrilobular emphysema. 2 mm noncalcified left upper lobe nodule. 3 mm groundglass left upper lobe nodules. Mild linear left upper and right middle lobe scarring. PLEURA: No pneumothorax or significant pleural effusion. HEART/PERICARDIUM: Heart within normal limits in size with coronary artery calcification. No pericardial effusion. VESSELS: Thoracic aorta nondilated. Mild atherosclerosis. MEDIASTINUM/RONA: No pathologically enlarged adenopathy. BONES: Degenerative change. CT/Low Dose CT Lung Screening IMPRESSION: Emphysema with left upper lobe pulmonary nodules measuring less than 4 mm. Lung-RADS category 2: Continue annual screening with low dose CT. Electronically Signed: Celia Sosa MD at 15:39 EST ,
--- OUTSIDE RECORDS SUMMARY | 2023-04-10 15:14 | XMS RPT_ITS | CCD ---
Author Name Unknown Address [address] [place] [address] Organization [facility] Care Team Providers Care Casualty Claims Supervisor Name Role Phone SHAYNE PRUETT Attending Unavailable SHAYNE PRUETT Referring Unavailable ERNA SHEN Primary Care Unavailable SHAYNE PRUETT Attending Unavailable SHAYNE PRUETT Referring Unavailable ERNA SHEN Primary Care Unavailable SHAYNE PRUETT Attending Unavailable SHAYNE PRUETT Referring Unavailable ERNA SHEN Primary Care Unavailable Erna Shen MD Primary Care Provider Tye BURNETT MD, Jolynn Unavailable Shayne Pruett MD Unavailable Boni Neves MD Unavailable [phone] Erna Shen MD Primary Care Provider [phone] Tye BURNETT MD, Dani Unavailable Shayne Pruett MD Unavailable Boni Neves MD Unavailable ERNA SHEN Primary Care Unavailable SHAYNE PRUETT Referring Unavailable SHAYNE PRUETT Attending Unavailable BONI NEVES Referring Unavailable BONI NEVES Attending Unavailable Erna Shen MD Primary Care Provider [phone] Allergies Allergy Classification Reported Allergen(s) Allergy Type Date of Onset Reaction(s) Facility (8 sources) amLODIPine; Translations: [AMLODIPINE] Drug Allergy 02-05-2015 Anaphylaxis [facility] Repository (8 sources) Doxycycline; Translations: [DOXYCYCLINE HYCLATE] Drug Allergy 08-10-2015 Unknown [facility]ository Medications Completed/Discontinued Medications Medication Drug Class(es) [...] Time Vital Sign Value Performing Clinician Faci [facility] 03-07-2022 10:26-0500 Body height 177.8 cm Shayne Pruett MD Work Phone: [facility] 03-07-2022 10:26-0500 Body weight 94.53 kg Shayne Pruett MD Work Phone: [facility] 03-07-2022 10:26-0500 Diastolic blood pressure 85 mm[Hg] Shayne Pruett MD Work Phone: [facility] 03-07-2022 10:26-0500 Heart rate 83 /min Shayne Pruett MD Work Phone: [facility] 03-07-2022 10:26-0500 SaO2% (BldA) [Mass fraction] 98 % Shayne Pruett MD Work Phone: [facility] 03-07-2022 10:26-0500 Systolic blood pressure 157 mm[Hg] Shayne Pruett MD Work Phone: [facility] Encounters Encounter Date Encounter Type Care Provider Facility Start: 08-18-2022 Erin olea MD Work Phone: [facility] Plan of Treatment Date Care Activity Detail Author Start: 11-14-2022 [facility] Start: 2022 PROSTATE CANCER SCREENING DISCUSSION PROSTATE CANCER SCREENING DISCUSSION [facility] Start: 03-25-2022 BP CONTROLLED (<130/80) BP CONTROLLED (<130/80) [facility] inic Start: 03-16-2022 DEPRESSION ASSESSMENT DEPRESSION ASSESSMENT [facility] Start: 11-14-2021 Influenza vaccination INFLUENZA (#1) [facility] Start: 06-21-2021 COVID-19 VACCINE (3 - Booster for Elio series) COVID-19 VACCINE (3 - Booster for Elio series) [facility] Start: 04-17-2021 COVID-19 VACCINE (3 - Booster for Elio series) COVID-19 VACCINE (3 - Booster for Elio series) [facility] Start: 12-18-2018 DIABETES SCREEN DIABETES SCREEN [facility] Start: 2017 Influenza vaccination LUNG CANCER SCREENING [facility] Start: 2017 SHINGRIX VACCINE (1 of 2) SHINGRIX VACCINE (1 of 2) [facility] Start: 2012 COLOGUARD (FIT-DNA) COLOGUARD (FIT-DNA) [facility] Start: 2012 Colonoscopy COLONOSCOPY [facility] Start: 2012 COLORECTAL CANCER SCREENING COLORECTAL CANCER SCREENING [facility] Start: [address] COLONOGRAPHY [facility] Start: 2012 FECAL OCCULT BLOOD FECAL OCCULT BLOOD [facility] Start: 2012 SIGMOIDOSCOPY SIGMOIDOSCOPY [facility] Start: 2002 LIPID SCREEN LIPID SCREEN [facility] Start: 1986 Urine microalbumin profile DTAP,TDAP,TD (1 - Tdap) [facility] Start: 1985 ANNUAL PCP TEAM CHRONIC DISEASE VISIT ANNUAL PCP TEAM CHRONIC DISEASE VISIT [facility] Start: 1985 BP CONTROLLED (<130/80) BP CONTROLLED (<130/80) [facility] in Start: 1985 HEPATITIS C SCREENING HEPATITIS C SCREENING [facility] Start: 1985 HIV SCREENING HIV SCREENING [facility] Start: 1979 Adult depression screening assessment DEPRESSION SCREENING [facility] Start: 1973 PNEUMOCOCCAL (1 - PCV) PNEUMOCOCCAL (1 - PCV) [facility] Start: 1967 HEPATITIS B (1 of 3 - 3-dose series) HEPATITIS B (1 of 3 - 3-dose series) [facility] End: 03-07-2023 Hepatic function 2000 panel - Serum or Plasma HEPATIC FUNCTION PNL Lab Routine Hyperthyroidism Every 6 months for 2 Occurrences starting 03/07/2022 until 03/07/2023 [facility] Work Phone: Payers Date Payer Category Payer Private Health [facility] [id number] 2022-Present [phone] [address] [address] [place] [address] HMO [id number] 2022 Unknown [id number] 2020 Private Health Insurance [employer] Shakira REILLYNA MANAGED CHOICE POS [id number] 2020-Present [phone] [address] [place] [address] POS [id number] 1967 Unknown [id number] 1967 Unknown [id number] 1967 Unknown [id number] Unknown [id number] Unknown [id number] Social History Date Type Detail Facility Start: 02-05-2015 End: 03-07-2022 Tobacco smoking status NHIS Smokes tobacco daily [facility] History of tobacco use Cigarette Smoker C [facility] Start: 02-05-2015 End: 03-07-2022 Cigarettes smoked current (pack per day) - Reported 1 [facility] Start: 02-05-2015 End: 03-07-2022 Tobacco use and exposure Smokeless tobacco non-user [facility] Start: 03-25-2021 End: 03-07-2022 Alcohol intake Current drinker of alcohol (finding) [facility] Start: 02-05-2015 History SDOH Alcohol Comment rare [facility] Start: 1965 Sex Assigned At Not on file C [facility] Clinical Notes 10-16-2021 to 08-18-2022 Telephone Encounter - Cecelia Kim MA - 08/18/2022 11:14 AM EDTTelephone Encounter - Shayne Pruett MD - 08/18/2022 8:50 AM EDTKeminnie Pruett MD - 03/07/2022 10:31 AM EST Note Date & Type Note Facility 08-18-2022 Miscellaneous Notes Duplicate, please remove and close Cecelia Kim CMA August 18, 2022 11:15 AM documented in this encounter [facility] 08-18-2022 Miscellaneous Notes The following approved medication [...] 03/07/2022 Next Appointment: 03/06/2023 Patient Phone numbers: [phone] (home) Request is for script(s) to be escript to pharmacy. Cecelia Kim CMA documented in this encounter [facility] 03-25-2022 Miscellaneous Notes The following approved medication [...] Cecelia Kim MA documented in this encounter [facility] 03-07-2022 Note HNO ID: [id number] Author: Shayne Pruett MD Service: ? Author [...] current medical deci (more content not included)... [facility] 03-07-2022 History of Presen t illness Narrative [...] rather than BUI. - Thyroid u/s done 05/28 at outside [...] regular aerobic exercise. documented in this encounter [facility] 10-16-2021 Miscellaneous Notes Pt has been rescheduled [...] TABLET BY MOUTH EVERY DAY SVITLANA: Yes Sahyne Pruett MD LILI 03/25/2021 NOV None at [...] Christine West CMA documented in this encounter [facility] documented in this encounter [facility] Diagnosis Hyperthyroidism Thyrotoxicosis without mention of goiter or other cause, without mention of thyrotoxic crisis or storm Essential hypertension Unspecified essential hypertension 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 or storm [facility] Diagnosis Hyperthyroidism- Primary Thyrotoxicosis without mention of goiter or other cause, without mention of thyrotoxic crisis or storm 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 or storm Fasting hyperglycemia Impaired fasting glucose Primary hypertension Unspecified essential hypertension [facility]* Diagnosis Essential hypertension Unspecified essential hypertension documented in this encounter [facility] note* Diagnosis Essential hypertension Unspecified essential hypertension documented in this encounter [facility] Summary Purpose Family History No Family History Records FoundNo Family History Records FoundNo Family History Records Found Advance Directives Documents on File Type Date Recorded Patient Environmental Engineering Assistant Expl anation Advance Directive(s) 10/30/2016 6:39 AM Additional Source Comments (unrecognized sect ion and content) No Status Records FoundNo Status Records FoundNo Status Records Found INFORMATION SOURCE (unrecogn ized section and content) DATE CREATED AUTHOR AUTHOR'S ORGANIZ ATION 04/13/2022 [facility] DATE CREATED AUTHOR AUTHOR'S ORGANIZ ATION 08/24/2022 [facility] Source Comments (unrecognize d section and content) In the event this informatio n is protected by the Federal Confidentiality of Alcohol and Drug Abuse Patient Records regulations: The Federal rules restrict any use of the information to criminally investigate or prosecute any alcohol or drug abuse patient.[facility] the event this information is protected by the Federal Confidentiality of Alcohol and Drug Abuse Patient Records regulations: The Federal rules restrict any use of the information to criminally investigate or prosecute any alcohol or drug abuse patient.[facility] the event this information is protected by the Federal Confidentiality of Alcohol and Drug Abuse Patient Records regulations: The Federal rules restrict any use of the information to criminally investigate or prosecute any alcohol or drug abuse patient.[facility] Center[facility] the event this information is protected by the Federal Confidentiality of Alcohol and Drug Abuse Patient Records regulations: The Federal rules restrict any use of the information to criminally investigate or prosecute any alcohol or drug abuse patient.[facility] Center[facility] the event this information is protected by the Federal Confidentiality of Alcohol and Drug Abuse Patient Records regulations: The Federal rules restrict any use of the information to criminally investigate or prosecute any alcohol or drug abuse patient.[facility] Reason for Visit (unrecogniz ed section and content) Reason Comments Refill Request Mathimazole, metopro lol, ramipril Reason Comments Refill Request Metoprolol Reason Comments Refill Request metoprolol duplicate Care Teams (unrecognized sec tion and content) Casualty Claims Supervisor Relationship Specialty Start Date End Date Erna Shen MD PCP - General Family Medicine 12/11/14 Jolynn Gamble MD, [address] [facility] [place], [place] [phone] Physician Radiation Oncology 09/24/15 Shayne Pruett MD [address] [facility] [address] [place] [address] Endocrinology 10/18/17 Boni Neves MD [address] [facility] [address] [place] [address] Ophthalmology 10/18/17 Casualty Claims Supervisor Relationship Specialty Start Date End Date Erna Shen MD PCP - General Family Medicine 12/11/14 Jolynn Gamble MD, [address] [place], [place] [phone] Physician Radiation Oncology 09/24/15 Shayne Pruett MD 6 [facility] [address] [place] [address] Endocrinology 10/18/17 Boni Neves MD [address] [address] Ophthalmology 10/18/17 Casualty Claims Supervisor Relationship Specialty Start Date End Date Erna Shen MD PCP - General Family Medicine 12/11/14 Jolynn Gamble MD, [address] [place] [address] Physician Radiation Oncology 09/24/15 Shayne Pruett MD [address] [address] Endocrinology 10/18/17 Boni Neves MD [address] [address] Ophthalmology 10/18/17 FOR RECORDS PERTAINING [...] BE BASED ON THE PRIMARY CLINICAL RECORDS. [facility] [employer] [facility]. provides no warranty or guarantee of the accuracy or completeness of information in this document.
== END | disposition home or self-care (01) ==
LOC: CT 14:53
PROVIDERS: PCP Family Medicine; Referring Provider Family Medicine; Visit Provider Family Medicine
DX: Z12.2 Encounter for screening for malignant neoplasm of respiratory organs (principal); F17.200 Nicotine dependence, unspecified, uncomplicated
CPT/HCPCS: 71271

== ENCOUNTER → 2023-12-14 | Outpatient (CLI) | payer OTHER, SELFPAY ==
[2023-12-14 10:39] LABS: Absolute Lymphocyte Count 2.97 X10^3/uL (0.83-4.51); Absolute Neutrophil Count 5.3 X10^3/uL (2.0-7.7); Basophil# 0.06 X10^3/uL; Basophil% 0.6 % (0-1); Eosinophil# 0.24 X10^3/uL; Eosinophils% 2.6 % (0-5); Hematocrit 52.3 % (40-54); Hemoglobin 17.2 g/dL (13.0-16.5); Lymphocyte # 2.97 X10^3/ul (0.83-4.51); Lymphocyte % 31.6 % (19-41); Mean Corp Hgb Conc 32.9 g/dL (32-36); Mean Corpuscular Hgb 28.7 pg (27.0-32.0); Mean Corpuscular Volume 87.2 fL (80-94); Mean Platelet Vol. 11.6 fl (6.2-12.0); Monocyte# 0.77 X10^3/uL; Monocyte% 8.2 % (0-10); NRBC Flagged by Analyzer 0 % (0-5); Neutrophil # 5.29 X10^3/uL (2.7-7.7); Neutrophil % 56.3 % (47-70); Platelet Count 273 K/mm3 (150-450); RBC Distribution Width CV 13.8 % (11.6-14.6); White Blood Count 9.4 K/mm3 (4.4-11.0)
[2023-12-14 11:07] LABS: Microalbumin,Random Urine 87.7 mg/L (NO RANGE EST.); Microalbumin:Creatinine Ratio 209.3 mg/g CRE (<30 mg/g CRE)
[2023-12-14 11:10] LABS: AST(SGOT) 20 U/L (15-37); Alanine Aminotransfer ALT/SGPT 29 U/L (16-61); Albumin, Serum 3.9 g/dL (3.2-5.0); Alkaline Phosphatase 109 U/L (45-117); Anion Gap 8 (5-15); BUN 11 mg/dL (7-18); BUN/Creat Ratio 13.7 RATIO (10-20); Calcium,Total 9.4 mg/dL (8.5-10.1); Chloride 100 mmol/L (98-107); Cholesterol 220 mg/dL (200); EST Glomerular Filtration Rate 105 mL/min (>60); Est Glom Filt Rate - Afr Amer 127 mL/min (>60); Globulin 3.9 g/dL (2.2-4.2); Glucose 93 mg/dL (74-106); High Density Lipoprotein 39 mg/dL; Potassium 4.2 mmol/L (3.5-5.1); Protein, Total 7.8 g/dL (6.4-8.2); Sodium Level 136 mmol/L (136-145); T4 Free Direct 1.02 ng/dL (0.76-1.46); Triglycerides 167 mg/dL; Very Low Density Lipoprotein 33 mg/dL (5-40)
== END | disposition home or self-care (01) ==
LOC: MFPLAB 08:29
PROVIDERS: PCP Family Medicine; Visit Provider Family Medicine
DX: J44.9 Chronic obstructive pulmonary disease, unspecified (principal); I10 Essential (primary) hypertension; E05.90 Thyrotoxicosis, unspecified without thyrotoxic crisis or storm
CPT/HCPCS: 36415; 80053; 80061; 82043; 82570; 84439; 84443; 84481; 85025

== ENCOUNTER → 2024-04-18 | Outpatient (CLI) | payer BC, SELFPAY ==
[2024-04-18 16:11] LABS: Microalbumin,Random Urine 79.7 mg/L (NO RANGE EST.); Microalbumin:Creatinine Ratio 84.6 mg/g CRE (<30 mg/g CRE)
[2024-04-18 16:30] LABS: ALB/GLOB Ratio 1.1 RATIO (0.9-2.4); AST(SGOT) 24 U/L (15-37); Alanine Aminotransfer ALT/SGPT 45 U/L (16-61); Albumin, Serum 4.1 g/dL (3.2-5.0); Alkaline Phosphatase 111 U/L (45-117); Anion Gap 8 (5-15); BUN 9 mg/dL (7-18); BUN/Creat Ratio 11.2 RATIO (10-20); Calcium,Total 9.2 mg/dL (8.5-10.1); Chloride 103 mmol/L (98-107); Cholesterol 138 mg/dL (200); EST Glomerular Filtration Rate 106 mL/min (>60); Est Glom Filt Rate - Afr Amer 128 mL/min (>60); Globulin 3.6 g/dL (2.2-4.2); Glucose 88 mg/dL (74-106); High Density Lipoprotein 45 mg/dL; PSA,Total - Annual Screen 0.35 ng/mL (0.00-4.00); Potassium 4.2 mmol/L (3.5-5.1); Protein, Total 7.7 g/dL (6.4-8.2); Sodium Level 137 mmol/L (136-145); Triglycerides 120 mg/dL; Very Low Density Lipoprotein 24 mg/dL (5-40)
== END | disposition home or self-care (01) ==
PROVIDERS: PCP Family Medicine; Referring Provider Family Medicine; Visit Provider Family Medicine
DX: I10 Essential (primary) hypertension (principal); E78.5 Hyperlipidemia, unspecified; E05.90 Thyrotoxicosis, unspecified without thyrotoxic crisis or storm; Z12.5 Encounter for screening for malignant neoplasm of prostate
CPT/HCPCS: 36415; 80053; 80061; 82043; 82570; 84153; 84443; G0103

== ENCOUNTER → 2024-04-19 | Outpatient (CLI) | payer BC, SELFPAY ==
--- NOTE | 2024-04-19 16:38 | CT_ITS ---
PROCEDURE: LOW DOSE CT LUNG SCREENING REASON FOR EXAM: Smoking history. TECHNIQUE: Low Dose CT Lung Screening without contrast COMPARISON: 04/10/2023 CT. FINDINGS: PULMONARY NODULES: (Only nodules >6mm are reported) Nodules described below are on series unless otherwise specified. Pulmonary Nodules: No concerning pulmonary nodules. Scattered sub 3 mm nodules. Hardware:None Lymph Nodes:No mediastinal hilar or axillary lymphadenopathy. Heart and Vasculature:Normal heart size. No pericardial effusion.Thoracic aorta and pulmonary arteries have normal contours; noncontrast technique limits evaluation. Coronary Artery Calcifications: Lungs and Airways: Bibasilar air-filled pulmonary cysts. Pleura:No pleural effusion. No pneumothorax. Upper Abdomen:Visualized portions of the upper abdominal viscera are unremarkable. Bones:Bone windows are unremarkable. CT/Low Dose CT Lung Screening IMPRESSION: 1. BASED ON THE ACR LUNG RADS FOR THE MOST SUSPICIOUS NODULE (IF ANY) DESCRIBE D IN THIS REPORT, THE OVERALL LUNG RADS SCORE IS 2.2 - BENIGN (BASED ON IMAGING FEATURES OR INDOLENT BEHAVIOR). RECOMMEND 12-MON TH SCREENING LDCT.. 2. SMOKING CESSATION COUNSELING IS RECOMMENDED IF THE PATIENT IS STILL SMOKING . 3. OTHER SIGNIFICANT FINDINGSNone. Reading Location: [id number]
== END | disposition home or self-care (01) ==
LOC: CT 16:34
PROVIDERS: PCP Family Medicine; Referring Provider Family Medicine; Visit Provider Family Medicine
DX: Z12.2 Encounter for screening for malignant neoplasm of respiratory organs (principal); F17.200 Nicotine dependence, unspecified, uncomplicated
CPT/HCPCS: 71271